=== PATIENT | female | born 1965 | race African-American/Black ===

== ENCOUNTER 2021-10-15 13:56 | Emergency (ER) | payer MEDICARE, MEDICAID, SELFPAY ==
[2021-10-15 14:03] VITALS: BP 138/87; PULSE 66; RESP 14; TEMP 36.7; O2SAT 97
--- NOTE | 2021-10-15 14:25 | ED.URI ---
HPI - URI/Sore Throat General Chief Complaint: Upper Respiratory Infection Stated Complaint: cold sx x2 mo. Time Seen by Provider: 10/15/21 14:20 History of Present Illness HPI Narrative: Pt presents with complaints of a persistent cough for nearly tow months that is productive of yellow sputum. Pt denies fever or weight gain or swelling. Pt had negative covid test at home. Pt denies exposure, Related Data Allergies Allergy/AdvReac Type Severity Reaction Status Date / Time No Known Allergies Allergy Verified 10/15/21 14:28 Review of Systems Review of Systems: All systems reviewed & are unremarkable except as noted in HPI and below Exam Const: General: healthy appearing Nutritional Appearance: well nourished Orientation/consciousness: patient oriented x3 Limitations: no limitations HENMT: Head: normal to inspection Mouth: Yes Normal oral and palatal mucosa present Eyes: Conjunctivae: conjunctivae normal EOM: EOMs intact bilaterally Neck: Neck: normal visual inspection Chest: Chest palpation & inspection: normal inspection of the chest Resp: Effort & Inspection: normal respiratory effort Auscultation: clear to auscultation bilaterally Cardio: Rate: regular rate Rhythm: regular rhythm Skin: General skin exam: normal color Neuro: General: patient oriented x3, moves all extremities and no focal motor deficits Cranial nerves: Yes Nystagmus not present Speech: normal speech Gait exam (Neuro): Normal gait present Extrem: General: normal to inspection and no clubbing, cyanosis or edema Psych: Mental Status: mental status grossly normal Affect: normal affect Attitude: cooperative Course Vital Signs Vital signs: Vital Signs Temperature 98.0 F 10/15/21 14:03 Pulse Rate 66 10/15/21 14:03 Respiratory Rate 14 10/15/21 14:03 Blood Pressure 138/87 10/15/21 14:03 Pulse Oximetry 97 10/15/21 14:03 Temperature 98.0 F 10/15/21 14:03 Pulse Rate 66 10/15/21 14:03 Respiratory Rate 14 10/15/21 14:03 Blood Pressure 138/87 10/15/21 14:03 Pulse Oximetry 97 10/15/21 14:03 Discharge Plan Discharge Clinical Impression: Bronchitis Patient Disposition: Home, Self-Care Condition: Stable Instructions: Antibiotic Form, Acute Bronchitis (ED) Prescriptions: New azithromycin [Zithromax Z-Thomas] 250 mg tablet See Rx Instructions .ROUTE .COMPLEX Qty: 6 0RF Rx Instructions: For 250 mg dose pack: take 500 mg today (day 1), then 250 mg for 4 days (days 2-5) prednisone 50 mg tablet 50 mg PO DAILY Qty: 5 0RF benzonatate 200 mg capsule 200 mg PO TID Qty: 10 0RF Follow-up/Referrals: PHYSICIAN NOT ON STAFF,NONSTAFF [Primary Care Provider] -
== END 2021-10-15 14:50 | disposition home or self-care (01) ==
PROVIDERS: Emergency Provider Emergency Medicine
DX: J40 Bronchitis, not specified as acute or chronic (principal)
CPT/HCPCS: 99283

== ENCOUNTER 2022-07-08 06:15 | Emergency (ER) | payer MEDICARE, MEDICAID, SELFPAY ==
[2022-07-08] VITALS (23 sets, daily range): BP systolic 139–163; BP diastolic 72–82; PULSE 56–68; RESP 15–18; TEMP 36.4; O2SAT 97–100
--- NOTE | 2022-07-08 06:30 | PC.NURSE ---
Patient comes in to ED with c/o right eye pressure and cheek pressure
--- NOTE | 2022-07-08 07:22 | PC.NURSE ---
Patient report received from HAILEY Servin. All questions answered and care of patient assumed.
--- NOTE | 2022-07-08 08:19 | ED.SKABFB ---
HPI - Skin/Abscess/Foreign Bdy General Chief complaint: Skin/Abscess/Foreign Body Stated complaint: Facial swelling Time Seen by Provider: 07/08/22 07:03 History of Present Illness HPI narrative: Patient is a 57-year-old female who presents ER with swelling beneath the right eye. Noticed it this morning. Nontender. No pruritus. No fevers or chills or sweats. Denies wearing any make-up yesterday that may have caused an irritant. No new facial washes. She did go fishing yesterday and may have gotten some dirty water on her face. No difficulty seeing. No dental pain. No eye discharge. Related Data Allergies Allergy/AdvReac Type Severity Reaction Status Date / Time No Known Allergies Allergy Verified 07/08/22 07:43 Review of Systems Constitutional: Constitutional: Denies chills and Denies fever(s) Eyes: Eyes: Denies change in vision Comments: no eye swelling/discharge ENT: Denies nasal congestion and Denies sore throat Integumentary/Breasts: Skin/Breast: Denies pruritus, Denies erythema and Denies rash Comments: edema under right eye PMFSH Past Medical History Medical History (Updated 07/08/22 @ 08:23 by Noe Reeves MD) Hypertension Rheumatoid arthritis Exam Narrative: GENERAL: Well-appearing, well-nourished, and in no acute distress. HEAD: Normocephalic, atraumatic. EYES: PERRL and EOMI. conjunctiva normal without injection or discharge. Mild swelling over the right maxilla without redness or pustule or vesicle. Nontender. No excoriations ENT: Mucous membranes moist. NECK: Supple. NEURO: Alert and oriented x3. PSYCH: Normal mood and affect. Course Course Emergency Course: I have counseled patient on the swelling to her cheek. [place] to be irritant/allergic in nature. Recommend antihistamines. Discharge home. Discussed signs and symptoms for return. Patient verbalized understanding. Vital Signs Vital signs: Vital Signs Pulse Rate 68 07/08/22 06:20 Respiratory Rate 18 07/08/22 06:20 Blood Pressure 141/74 H 07/08/22 06:20 Pulse Oximetry 99 07/08/22 06:20 Oxygen Delivery Room Air 07/08/22 06:20 Temperature 97.6 F 04/19/23 06:24 Pulse Rate 62 07/08/22 06:24 Respiratory Rate 15 07/08/22 06:24 Blood Pressure 163/72 H 07/08/22 07:17 Pulse Oximetry 100 07/08/22 07:17 Oxygen Delivery Room Air 07/08/22 06:20 Discharge Plan Discharge Clinical Impression: Dermatitis Patient Disposition: Home, Self-Care Condition: Stable Instructions: Dermatitis (ED) Additional Instructions: He has some inflammation of your right cheek beneath your eye. There is no evidence of cellulitis (skin infection) or abscess. There is no evidence of dental infection or eye infection. It is likely related to an allergen or irritant contacting the skin. Take Zyrtec for antihistamine support. It is also recommended you apply some warm compresses. Return to the ER if your eyes swell shut, your skin is red and hot, you develop fever over 100.4 ?F, you have additional concerns. Prescriptions: No Action azithromycin [Zithromax Z-Thomas] 250 mg tablet See Rx Instructions .ROUTE .COMPLEX Qty: 6 0RF Rx Instructions: For 250 mg dose pack: take 500 mg today (day 1), then 250 mg for 4 days (days 2-5) prednisone 50 mg tablet 50 mg PO DAILY Qty: 5 0RF benzonatate 200 mg capsule 200 mg PO TID Qty: 10 0RF Follow-up/Referrals: PHYSICIAN NOT ON STAFF,NONSTAFF [Primary Care Provider] - 1 Week Stand Alone Forms: Work/School Release IP
== END 2022-07-08 08:37 | disposition home or self-care (01) ==
PROVIDERS: Emergency Provider Emergency Medicine
DX: L30.9 Dermatitis, unspecified (principal); I10 Essential (primary) hypertension; M06.9 Rheumatoid arthritis, unspecified
CPT/HCPCS: 99281